=== PATIENT | male | born 1995 | race American Indian/Alaskan Native ===

== ENCOUNTER 2016-12-11 23:08 | Emergency (ER) | payer SELFPAY ==
[2016-12-11 23:45] VITALS: BP 126/77
--- NOTE | 2016-12-12 00:36 | XRay Report ---
FINAL REPORT EXAM: XR HAND 3 RT HISTORY: hand pain, pt punched glass window that did not break COMPARISONS: None. FINDINGS: Three views right hand Mid right 5th trans metacarpal fracture with adjacent soft tissue swelling. Very mild apex dorsal angulation. No radiodense foreign body or other fracture. Joint spaces are unremarkable. IMPRESSION: Minimally angulated right 5th mid trans metacarpal fracture.
--- NOTE | 2016-12-12 02:00 | Emergency Department Report ---
Upper Extremity - HPI Chief Complaint: Extremity Injury, Upper Stated Complaint: RT HAND INJURY Time Seen by Provider: 12/12/16 01:52 Upper Extremity: Right Hand, Right Little Finger Occurred When: Today Mechanism: Hit with Object Symptoms: Yes Pain with Movement, No Deformity ED Review of Systems ROS: Stated complaint: RT HAND INJURY Other details as noted in HPI Eyes: denies: eye pain, eye discharge, vision change ENT: denies: ear pain, throat pain Respiratory: denies: cough, shortness of breath, wheezing Cardiovascular: denies: chest pain, palpitations Endocrine: no symptoms reported Gastrointestinal: denies: abdominal pain, nausea, diarrhea Genitourinary: denies: urgency, dysuria Musculoskeletal: arthralgia (right pinky). denies: back pain, joint swelling Skin: denies: rash, lesions Neurological: denies: headache, weakness, paresthesias Psychiatric: denies: anxiety, depression ED Past Medical Hx - Past Medical History Previous Medical History?: No - Surgical History Past Surgical History?: No - Social History Smoking Status: Never Smoker Substance Use Type: None - Medications Home Medications: Home Medications Medication Instructions Recorded Confirmed Last Taken Type HYDROcodone/APAP 7.5-325 [Nebo 1 each PO Q8HR #12 tablet 12/12/16 Unknown Rx 7.5-325 mg TAB] Upper Extremity Exam - Exam General: Vital signs noted. No distress. Alert and acting appropriately. Head and Torso: No HEENT Abnormality, No Neck Tenderness, No Chest/Lungs Abnormality Shoulder Exam: Yes Normal Range of Motion in Shoulder, No Shoulder Tenderness, No Clavicle Tenderness Arm Exam: No Arm/Humerus Tenderness, No Arm Deformity Elbow: Yes Normal Range of Motion in Elbow, No Elbow Tenderness, No Elbow Deformity Forearm: No Forearm Tenderness, No Forearm Deformity, No Pain with Pronation, No Pain with Supination Wrist: Yes Normal ROM in Wrist, No Wrist Tenderness, No Wrist Deformity, No Snuffbox Tenderness, No Pain with Axial Thumb Compression Hand: Yes Hand Tenderness (fifth metacarpal), Yes Hand Deformity (swelling on the fifth metacarpal area), Yes Normal ROM in Digit(s), No Digit(s) Deformity, No Tendon Dysfunction CMS Exam: Yes Normal Distal Pulses, Yes Normal Capillary Refill, Yes Normal Distal Sensation, No Broken Skin ED Course Vital Signs 12/11/16 23:42 Temperature 98.2 F Pulse Rate 56 L Respiratory 18 Rate Blood Pressure 126/77 O2 Sat by Pulse 100 Oximetry ED Medical Decision Making - Radiology Data Radiology results: report reviewed, image reviewed Impression minimal angulated right fifth mid transverse metacarpal fracture - Medical Decision Making Assessment evaluated by this provider factor. Patient be placed in a ulnar gutter splint. He will be given Nebo pain medication for pain control referral to orthopedics for follow-up. She verbalized understanding Critical care attestation.: If time is entered above; I have spent that time in minutes in the direct care of this critically ill patient, excluding procedure time. ED Disposition Clinical Impression: Fracture of fifth metacarpal bone of right hand Qualifiers: Encounter type: initial encounter Fracture type: closed Metacarpal location: shaft Fracture alignment: nondisplaced Qualified Code(s): S62.356A - Nondisplaced fracture of shaft of fifth metacarpal bone, right hand, initial encounter for closed fracture Disposition: DISCHARGED TO HOME OR SELFCARE Is pt being admited?: No Does the pt Need Aspirin: No Condition: Stable Instructions: Hand Fracture (ED), Boxer Fracture (ED) Additional Instructions: Take pain medication as prescribed follow up with orthopedics we have listed one below. Do Not operate heavy machinery while being on pain medication. Prescriptions: HYDROcodone/APAP 7.5-325 [Nebo 7.5-325 mg TAB] 1 each PO Q8HR #12 tablet Referrals: JUDY TRINH MD [Staff Physician] - 3-5 Days Forms: Work/School Release Form(ED), Accompanied Note
[2016-12-12] MEDS ORDERED: NORCO 7.5/325 PO ONE (02:02)
== END 2016-12-12 02:47 | disposition home or self-care (01) ==
LOC: ED 23:08
DX: S62.356A Nondisplaced fracture of shaft of fifth metacarpal bone, right hand, initial encounter for closed fracture (principal); W22.8XXA Striking against or struck by other objects, initial encounter; Y93.9 Activity, unspecified; Y92.9 Unspecified place or not applicable; Y99.9 Unspecified external cause status
CPT/HCPCS: 99283

== ENCOUNTER 2016-12-13 13:02 | Emergency (ER) | payer SELFPAY ==
[2016-12-13 13:19] VITALS: BP 143/86
--- NOTE | 2016-12-13 13:54 | Emergency Department Report ---
Upper Extremity - HPI Chief Complaint: Extremity Injury, Upper Stated Complaint: NUMBNESS IN FINGERS/SWOLLEN Time Seen by Provider: 12/13/16 13:38 Upper Extremity: Right Hand Occurred When: 2 Days Mechanism: Other (punched glass window) Severity: mild Symptoms: Yes Pain with Movement, Yes Deformity, Yes Limited Range of Movement, Yes Swelling, No Numbness, No Weakness, No Bruising/Ecchymosis Other History: 21-year-old male past medical history none presents with complaint of pain at right distal hand. Patient states that he was seen 2 days ago for a fracture in his hand and placed in splint. Patient states he has had slight tingling in distal right pinky finger. Also states that he feels that his right hand is swollen. Patient states that he feels that his hand may not be fully stable area patient is wearing ulnar gutter splint right hand/forearm ED Review of Systems ROS: Stated complaint: NUMBNESS IN FINGERS/SWOLLEN Other details as noted in HPI Constitutional: denies: chills, fever Eyes: denies: eye pain, eye discharge, vision change ENT: denies: ear pain, throat pain Respiratory: denies: cough, shortness of breath, wheezing Cardiovascular: denies: chest pain, palpitations Endocrine: no symptoms reported Gastrointestinal: denies: abdominal pain, nausea, diarrhea Genitourinary: denies: urgency, dysuria Musculoskeletal: as per HPI (right hand pain). denies: back pain, joint swelling, arthralgia Skin: denies: rash, lesions Neurological: denies: headache, weakness, paresthesias Psychiatric: denies: anxiety, depression Hematological/Lymphatic: denies: easy bleeding, easy bruising ED Past Medical Hx - Surgical History Additional Surgical History: fx right 5th digit - Social History Smoking Status: Never Smoker Substance Use Type: None - Medications Home Medications: Home Medications Medication Instructions Recorded Confirmed Last Taken Type HYDROcodone/APAP 7.5-325 [[place]ay 1 each PO Q8HR #12 tablet 12/12/16 Unknown Rx 7.5-325 mg TAB] Upper Extremity Exam - Exam General: Vital signs noted. No distress. Alert and acting appropriately. Head and Torso: No HEENT Abnormality, No Neck Tenderness, No Chest/Lungs Abnormality, No Abdominal Tenderness, No Back Tenderness Shoulder Exam: Yes Normal Range of Motion in Shoulder, No Shoulder Tenderness, No Clavicle Tenderness, No Shoulder Deformity, No AC Joint Tenderness Arm Exam: No Arm/Humerus Tenderness, No Arm Deformity Elbow: No Elbow Tenderness, No Normal Range of Motion in Elbow, No Elbow Deformity Forearm: No Forearm Tenderness, No Forearm Deformity, No Pain with Pronation, No Pain with Supination Wrist: Yes Normal ROM in Wrist, No Wrist Tenderness, No Wrist Deformity, No Snuffbox Tenderness, No Pain with Axial Thumb Compression Hand: Yes Hand Tenderness (pain right fifth metacarpal region), Yes Hand Deformity (mild hand swelling), Yes Normal ROM in Digit(s), No Digit Tenderness (slight right fifth pinky swelling), No Digit(s) Deformity, No Tendon Dysfunction CMS Exam: Yes Normal Distal Pulses (distal radial, ulnar and brachial pulses strong to palpation), Yes Normal Capillary Refill ([place] refill less than one second all fingers), Yes Normal Distal Sensation (sensation fully intact), No Broken Skin Hand L/R Back: 1 - Pain and swelling here ED Course Vital Signs 12/13/16 13:16 Temperature 98.3 F Pulse Rate 67 Respiratory 18 Rate Blood Pressure 143/86 O2 Sat by Pulse 100 Oximetry ED Medical Decision Making - Medical Decision Making A/P: Right Hand boxer's fracture, fifth metacarpal fracture 1-I removed splint to examine the hand. Distal sensation and capillary refill distal pulses fully intact on clinical exam mild swelling on the lateral aspect of right hand near fracture, slight swelling of right distal pinky finger. Patient able to range at distal interphalangeal joint and proximal interphalangeal joint and at MCP joint area no signs of cellulitis, tissue soft palpation, distal sensation intact to pinprick and light touch 2-I replaced patient splints with 4 inch OCL. Patient originally had 2 inch ulnar gutter OCL which he states may not have been fully supportive. After re- splinting patient ulnar gutter splint patient states that he feels that his hand is much more stable and comfortable 3-I advised patient to follow up with his orthopedic referral 4-patient has prescription for [place]cl[place] for pain 5-I advised patient that he should return to the ED for loss of sensation in fingers or hand any perceived redness distal fingertips which are exposed or for any pallor at the distal fingertips. Patient states he understood my instructions Critical care attestation.: If time is entered above; I have spent that time in minutes in the direct care of this critically ill patient, excluding procedure time. ED Disposition Clinical Impression: Closed fracture of 5th metacarpal Qualifiers: Encounter type: initial encounter Metacarpal location: shaft Fracture alignment : displaced Laterality: right Qualified Code(s): S62.326A - Displaced fracture of shaft of fifth metacarpal bone, right hand, initial encounter for closed fracture Hand injury Qualifiers: Encounter type: initial encounter Laterality: right Qualified Code(s): S69.91XA - Unspecified injury of right wrist, hand and finger(s), initial encounter Disposition: DISCHARGED TO HOME OR SELFCARE Is pt being admited?: No Does the pt Need Aspirin: No Condition: Stable Instructions: Splint Care (ED) Referrals: PRIMARY MD BHARGAV [Primary Care Provider] - 3-5 Days RAYMOND LUQUE MD [Staff Physician] - 3-5 Days Forms: Work/School Release Form(ED) Time of Disposition: 14:26
== END 2016-12-13 14:30 | disposition home or self-care (01) ==
LOC: ED 13:02
DX: S62.326A Displaced fracture of shaft of fifth metacarpal bone, right hand, initial encounter for closed fracture (principal); W22.8XXA Striking against or struck by other objects, initial encounter; Y93.89 Activity, other specified; Y99.8 Other external cause status; Y92.89 Other specified places as the place of occurrence of the external cause
CPT/HCPCS: 99282